=== PATIENT | female | born 1955 | race Caucasian/White ===

== ENCOUNTER → 2017-12-19 | Outpatient (CLI) | payer BC ==
--- NOTE | 2017-12-20 13:54 | MM ---
Reason for exam: screening (asymptomatic). Last mammogram was performed 2 years and 3 months ago. History: Patient is postmenopausal. Taking estrogen for 6 months beginning at age 55. Physical Findings: A clinical breast exam by your physician is recommended on an annual basis and results should be correlated with mammographic findings. MG 3D Screening Mammo W/Cad Bilateral CC, MLO, and XCCL view(s) were taken. Prior study comparison: April 02, 2011, bilateral digital screening mammo w/CAD. March 07, 2009, bilateral digital screening mammogram. There are scattered fibroglandular densities. There is chronic nodularity bilaterally. No significant changes when compared with prior studies. ASSESSMENT: Benign, BI-RAD 2 RECOMMENDATION: Routine screening mammogram of both breasts in 1 year.
== END | disposition home or self-care (01) ==
LOC: RADMAMWWP 12:57
PROVIDERS: ATTEND Family Medicine
DX: Z12.31 Encounter for screening mammogram for malignant neoplasm of breast (principal)
CPT/HCPCS: 77063; 77067

== ENCOUNTER → 2019-01-10 | Outpatient (CLI) | payer BC ==
--- NOTE | 2019-01-11 12:54 | MM ---
Reason for exam: screening (asymptomatic). Last mammogram was performed 1 year and 1 month ago. History: Patient is postmenopausal. Taking estrogen for 6 months beginning at age 55. Physical Findings: A clinical breast exam by your physician is recommended on an annual basis and results should be correlated with mammographic findings. MG 3D Screening Mammo W/Cad Bilateral CC and MLO view(s) were taken. Prior study comparison: December 19, 2017, bilateral MG 3d screening mammo w/cad. September 18, 2015, mammogram, performed at [facility]. There are scattered fibroglandular densities. There is chronic nodularity bilaterally. Benign bilateral oil cysts. No significant changes when compared with prior studies. ASSESSMENT: Benign, BI-RAD 2 RECOMMENDATION: Routine screening mammogram of both breasts in 1 year.
== END | disposition home or self-care (01) ==
LOC: RADMAMWWP 10:58
PROVIDERS: ATTEND Family Medicine
DX: Z12.31 Encounter for screening mammogram for malignant neoplasm of breast (principal)
CPT/HCPCS: 77063; 77067

== ENCOUNTER → 2020-04-18 | Outpatient (CLI) | payer BC ==
--- NOTE | 2020-04-21 09:52 | MM ---
Reason for exam: screening (asymptomatic). Last mammogram was performed 1 year and 3 months ago. History: Patient is postmenopausal. Taking estrogen for 6 months beginning at age 55. Physical Findings: A clinical breast exam by your physician is recommended on an annual basis and results should be correlated with mammographic findings. MG 3D Screening Mammo W/Cad Bilateral CC, MLO, and XCCL view(s) were taken. Prior study comparison: January 10, 2019, bilateral MG 3d screening mammo w/cad. December 19, 2017, bilateral MG 3d screening mammo w/cad. The breast tissue is heterogeneously dense. This may lower the sensitivity of mammography. There is chronic nodularity in the right breast. No significant changes when compared with prior studies. ASSESSMENT: Benign, BI-RAD 2 RECOMMENDATION: Routine screening mammogram of both breasts in 1 year.
== END | disposition home or self-care (01) ==
LOC: RADMAMWWP 12:52
PROVIDERS: ATTEND Family Medicine
DX: Z12.31 Encounter for screening mammogram for malignant neoplasm of breast (principal)
CPT/HCPCS: 77063; 77067

== ENCOUNTER → 2020-06-04 | Outpatient (CLI) | payer BC ==
--- NOTE | 2020-06-04 16:41 | MR ---
EXAMINATION TYPE: MR lumbar spine wo con DATE OF EXAM: 06/04/2020 COMPARISON: None HISTORY: Lower back pain CONTRAST: 0 mL intravenous Gadavist. TECHNIQUE: Multiplanar, multisequence images of the lumbar spine were acquired. FINDINGS: L5-S1: No significant disc bulge or disc herniation. No spinal canal stenosis. No foraminal stenosi s. L4-L5: Mild disc bulge has anterior thecal sac contact. No AP spinal canal stenosis present. Facet hy pertrophy is mild posterior lateral thecal sac contact. There is moderate left foraminal narrowing. L3-L4: No significant disc bulge or disc herniation. No spinal canal stenosis. No foraminal stenosi s. Mild facet hypertrophy is present with posterior lateral thecal sac contact. L2-L3: No significant disc bulge or disc herniation. No spinal canal stenosis. No foraminal stenosi s. L1-L2: No significant disc bulge or disc herniation. No spinal canal stenosis. No foraminal stenosi s. T12-L1: No significant disc bulge or disc herniation. No spinal canal stenosis. No foraminal stenos is. Cord terminates at the L2-L3 level. IMPRESSION: 1. Minimal disc bulging L5-4-5 with anterior thecal sac contact. 2. Some facet hypertrophy is present L4-5 and to a lesser degree L3-4.
== END | disposition home or self-care (01) ==
LOC: RADMRIMAIN 13:22
PROVIDERS: ATTEND Orthopaedic Surgery
DX: M51.26 Other intervertebral disc displacement, lumbar region (principal); M47.816 Spondylosis without myelopathy or radiculopathy, lumbar region
CPT/HCPCS: 72148

== ENCOUNTER 2020-07-03 09:27 | Day surgery (SDC) | payer BC ==
[2020-07-02 09:35] VITALS: BMI 30.2
[~2020-07-03 09:27] MED LIST: LACTATED RINGERS 1,000 ML IV SCH
[2020-07-03 09:50] VITALS: TEMP 97.6
[2020-07-03] MEDS ORDERED: MIDAZOLAM 2 MG/2 ML VIAL ONE (09:50)
[2020-07-03] MEDS ORDERED: methylPREDNISolone ACETATE 40 MG/ML 1 ML VIAL ONE (09:50)
[2020-07-03] MEDS ORDERED: fentaNYL (PF) 50 MCG/ML 2 ML AMP ONE (09:50)
[2020-07-03] MEDS ORDERED: IOPAMIDOL M200 10 ML VIAL ONE (09:50)
--- NOTE | 2020-07-03 10:12 | P.PCN ---
Date of Procedure: 07/03/20 Procedure(s) Performed: Patient Name: June Askew Date of : 1955 Patient Status: Surgical Day Care Attending Provider: Larry Gerber Date: 07/03/20 10:10 Initialization Date: 07/03/20 10:10 Date of Procedure: 07/03/20 Procedure(s) Performed: PREOPERATIVE DIAGNOSIS: Lumbar radiculopathy . POSTOPERATIVE DIAGNOSIS: Same as preoperative diagnoses. PROCEDURE 1. Transforaminal epidural steroid injection under fluoroscopic guidance at right L4-5 level. (Fluoroscopy images stored on file in the radiology Department ) 2. Lumbar epidurogram . ANESTHESIA: Local with 1% lidocaine 3 ml , moderate sedation with intravenous Versed 2 mg and fentanyle 50 micrograms. EBL: Minimal PROCEDURE INDICATION: The patient with low back pain and radiculopathy symptoms unresponsive to conservative treatment. PROCEDURE DESCRIPTION / TECHNIQUE: The patient was seen and identified in the preoperative area. Risks, benefits, complications, and alternatives were discussed with the patient. The patient agreed to proceed with the procedure and signed the consent. IV was started, and vital signs were stable. Patient was taken to the OR and time out was completed. The patient was placed in the prone position on procedure table and a pillow was placed under the abdomen to reduce lumbar lordosis. The lumbosacral area was prepped and draped in the usual sterile fashion. Critical pause was taken. Vital signs were closely monitored during the procedure. Conscious sedation was used during the procedure to decrease patient s anxiety. Using oblique fluoroscopy, the chin of the ``Alex dog at right L4-5 level was identified, and the skin and deeper tissues just below was localized with 1% lidocaine. Subsequently, a 22-gauge 5-inch spinal needle was advanced under a tunneled view fluoroscopic guidance just underneath the chin of the ``Alex dog at the right L4-5 Under lateral fluoroscopy, the needle was then advanced to the posterior border of the interforaminal space. After negative aspiration of CSF and blood and with no paresthesias, 1 mL Isovue 200 contrast dye was injected excellent epidurogram and outlining of the nerve root Subsequently, 3 mL of block solution containing 80 mg Depo-Medrol and 2 mL of 0.9% normal saline PF was injected. Needle was removed . At the end of the procedure, skin was cleansed, and bandages were applied. COMPLICATIONS:none DISPOSITION / PLANS: The patient was placed in a supine position and transferred to the recovery area in a stable condition for observation. There was no evidence of lower extremity motor or sensory deficit after the procedure. Patient was discharged from the recovery room after meeting discharge criteria. Home discharge instructions were given to the patient by the staff. The patient was reexamined prior to discharge.
[2020-07-03 10:23] VITALS: RESP 18
[2020-07-03 10:45] VITALS: BP 128/70; PULSE 72
--- NOTE | 2020-07-03 10:45 | FL ---
EXAMINATION TYPE: FL guided pain mgmt statistic DATE OF EXAM: 07/03/2020 CLINICAL HISTORY: Low back pain. TECHNIQUE: Fluoroscopy. COMPARISON: None. FINDINGS: Fluoroscopic guidance was provided during pain relief procedure performed by Dr. Gerber . A total of 0.13 minutes of fluoroscopic time was utilized during the procedure and two spot images are acquired. Images acquired shows needle localization near L4-L5 level off the midline. IMPRESSION: As Above.
[2020-07-03] MEDS ORDERED: IV FLUID CONTINUATION 1,000 ML IV ONE (10:46)
== END 2020-07-03 10:50 | disposition home or self-care (01) ==
LOC: ORPAIN 09:27
PROVIDERS: ATTEND Specialist
DX: M54.16 Radiculopathy, lumbar region (principal); M48.061 Spinal stenosis, lumbar region without neurogenic claudication; Z88.5 Allergy status to narcotic agent; Z90.710 Acquired absence of both cervix and uterus
CPT/HCPCS: 64483; J2250; J1030; J3010; Q9966; 99152

== ENCOUNTER → 2021-08-13 | Outpatient (CLI) | payer MEDICARE, OTHER ==
--- NOTE | 2021-08-17 08:57 | MM ---
Reason for exam: screening (asymptomatic). Last mammogram was performed 1 year and 4 months ago. History: Patient is postmenopausal. Taking estrogen for 6 months beginning at age 55. Physical Findings: A clinical breast exam by your physician is recommended on an annual basis and results should be correlated with mammographic findings. MG 3D Screening Mammo W/Cad Bilateral CC and MLO view(s) were taken. Prior study comparison: April 18, 2020, bilateral MG 3d screening mammo w/cad. January 10, 2019, bilateral MG 3d screening mammo w/cad. There are scattered fibroglandular densities. There is chronic nodularity bilaterally. Benign bilateral oil cyst calcifications. No significant changes when compared with prior studies. ASSESSMENT: Benign, BI-RAD 2 RECOMMENDATION: Routine screening mammogram of both breasts in 1 year.
== END | disposition home or self-care (01) ==
LOC: RADMAMWWP 10:31
PROVIDERS: ATTEND Family Medicine
DX: Z12.31 Encounter for screening mammogram for malignant neoplasm of breast (principal); Z78.0 Asymptomatic menopausal state
CPT/HCPCS: 77063; 77067

== ENCOUNTER → 2021-10-14 | Outpatient (CLI) | payer MEDICARE, OTHER ==
--- NOTE | 2021-10-14 14:54 | BD ---
EXAMINATION TYPE: Axial Bone Density DATE OF EXAM: 10/14/2021 COMPARISON: 11.07.2000 report. CLINICAL HISTORY: 66 years year old Female. ICD-10 CODE: Z78.0 POST MENOPAUSAL WITHOUT HRT Height: 60.8 Weight: 176 FRAX RISK QUESTIONS: Family History (Parent hip fracture): NO FX 3. Menopause before 45: AT 46 RISK FACTORS HISTORY OF: Surgery to Spine LOWER SPINE...AUG 2020 L4 AND L5 SURGICAL REPAIR WITH HARDWARE Family History of Osteoporosis: YES, NO FX Postmenopausal woman: YES, AT 46 YRS , PARTIAL HYST AT 41 Hyperparathyroidism: NO Adrenal Insufficiency: NO MEDICATIONS: Additional Medications: BP MEDS, REFLUX MEDS, STATIN FOR CHOLESTEROL, CELEBREX, VIT D Additional History: OSTEOARTHRITIS, REFLUX, CHOLESTEROL, HYPERTENSION, EARLY MENOPAUSE, RECENT LUMBAR SURG, WITH HARDWARE...BILAT TKRs EXAM MEASUREMENTS: Bone mineral densitometry was performed using the [employer] System. SURGICAL REPAIR.....L4 AND L5 WITH HARDWARE......SPINE NOT SCANNED Bone mineral density about the L hip (g/cm2): 0.874 T Score values are as follows: -----L Neck: -1.9 -----L Total: -1.1 Bone mineral density has: Decreased -19.3% since study of: 11.07.2000 Bone mineral density about the R Wrist (g/cm2): 0.622 T Score values are as follows: -----Dist. R+U: -0.2 -----Prox. R+U: 0.7 -----Radius total: 0.0 Bone mineral density FIRST SCANN OF FOREARM..... FRAX%s: The graph provided illustrates a 9.8% chance for a major osteoporotic fx and a 1.3% chance fo r the hips probability for fx in 10 years time. IMPRESSION: Osteopenia (T Score between -2.5 and -1). There is slightly increased risk of fracture and the patient may be considered for treatment. Re-Screen 2-5 years. NOTE: T-SCORE=SD OF THE YOUNG ADULT MEAN.
== END | disposition home or self-care (01) ==
LOC: RADBDWWP 12:46
PROVIDERS: ATTEND Family Medicine
DX: M85.852 Other specified disorders of bone density and structure, left thigh (principal); Z78.0 Asymptomatic menopausal state
CPT/HCPCS: 77080

== ENCOUNTER 2022-04-06 23:07 | Emergency (ER) | payer MEDICARE, OTHER ==
[2022-04-06 23:16] VITALS: BP 163/84; PULSE 87; RESP 18; TEMP 98.6
[2022-04-06] MEDS ORDERED: MORPHINE SULFATE 4 MG/ML SYRINGE IM STA (23:31)
--- NOTE | 2022-04-06 23:41 | ED ---
Fall HPI - General Chief Complaint: Fall Stated Complaint: Fall down 6 steps Time Seen by Provider: 04/06/22 23:21 Source: patient, family Mode of arrival: ambulatory - History of Present Illness Initial Comments: This is a 67-year-old woman here to have evaluation after she had fallen down approximately 6 stairs in her home tonight. The patient states that she was attempting to catch her dog and then she lost her balance and fell down the stairs. She states that she tumbled and it resulted in her having pain over the left shoulder blade. She denies loss of consciousness or head injury. There is no pain in the head, neck, back, chest or abdomen. None of the other extremities are bothering her. She was able to stand and walk. She states that there is pain when she attempts to move her left arm. The pain is again over the left scapula. MD Complaint: fall Onset/Timin -: minutes(s) Fall From: down stairs (#) (6) When Fall Occurred: just prior to arrival Fall Witnessed: yes, by family Place Fall Occurred: home Loss of Consciousness: none Prolonged Down Time?: no Symptoms Prior to Fall: none Location - Extremities: Left: Shoulder Severity: moderate Quality: aching Context: tripped/slipped Associated Symptoms: denies - Related Data Home Medications Medication Instructions Recorded Confirmed Lansoprazole [Prevacid] 30 mg PO DAILY 02/18/15 07/02/20 Meloxicam [Mobic] 15 mg PO DAILY 02/18/15 07/02/20 Calcium Gummie 1,000 mg PO DAILY 07/02/20 Metoprolol Succinate (ER) [Toprol 25 mg PO QAM 07/02/20 07/02/20 Xl] Milk Thistle 450 mg PO DAILY 07/02/20 07/02/20 [place]-3 Fatty Acids/Fish Oil [Fish 4,800 mg PO DAILY 07/02/20 07/02/20 Oil 1,000 mg Softgel] Solifenacin Succinate [Vesicare] 10 mg PO DAILY 07/02/20 07/02/20 hydroCHLOROthiazide 12.5 mg PO DAILY 07/02/20 07/02/20 Allergies Allergy/AdvReac Type Severity Reaction Status Date / Time hydrocodone bitartrate AdvReac Nausea & Verified 04/06/22 23:15 [From Vicodin] Vomiting Review of Systems ROS Statement: Those systems with pertinent positive or pertinent negative responses have been documented in the HPI. ROS Other: All systems not noted in ROS Statement are negative. Constitutional: Denies: weakness Eyes: Denies: vision change Respiratory: Denies: cough, dyspnea Cardiovascular: Denies: chest pain, palpitations, syncope Gastrointestinal: Denies: abdominal pain, vomiting Genitourinary: Denies: dysuria, hematuria Musculoskeletal: Reports: as per HPI, arthralgia. Denies: back pain Skin: Denies: rash Neurological: Denies: headache, weakness, numbness Past Medical History Past Medical History: GERD/Reflux, Hypertension, Osteoarthritis (OA) History of Any Multi-Drug Resistant Organisms: None Reported Past Surgical History: Hysterectomy, Joint Replacement Additional Past Surgical History / Comment(s): RACHELLE TOTAL KNEE, RIGHT SHOULDER. Past Anesthesia/Blood Transfusion Reactions: No Reported Reaction Past Psychological History: No Psychological Hx Reported Smoking Status: Never smoker Past Alcohol Use History: Daily Past Drug Use History: None Reported - Past Family History Father Family Medical History: Cancer Additional Family Medical History / Comment(s): SKIN CA General Exam Limitations: no limitations General appearance: alert, in no apparent distress Head exam: Present: atraumatic, normocephalic Eye exam: Present: normal appearance. Absent: scleral icterus, conjunctival injection Neck exam: Present: normal inspection, full ROM. Absent: tenderness, meningismus Respiratory exam: Present: normal lung sounds bilaterally. Absent: respiratory distress, wheezes, rales, rhonchi, stridor, chest wall tenderness Cardiovascular Exam: Present: regular rate, normal rhythm, normal heart sounds. Absent: systolic murmur, diastolic murmur, rubs, gallop GI/Abdominal exam: Present: soft. Absent: distended, tenderness, guarding, rebound, rigid, mass, pulsatile mass Extremities exam: Present: normal inspection, tenderness, normal capillary refill. Absent: pedal edema, calf tenderness Back exam: Present: normal inspection. Absent: CVA tenderness (R), CVA tenderness (L), paraspinal tenderness, vertebral tenderness Neurological exam: Present: alert, oriented X3. Absent: motor sensory deficit Skin exam: Present: warm, dry, intact, normal color. Absent: rash Course Vital Signs 04/06/22 23:13 Temperature 98.6 F Pulse Rate 87 Respiratory 18 Rate Blood Pressure 163/84 O2 Sat by Pulse 94 L Oximetry Disposition Clinical Impression: Fall, Contusion Disposition: HOME SELF-CARE Condition: Good Instructions (If sedation given, give patient instructions): Contusion in Adults (ED) Is patient prescribed a controlled substance at d/c from ED?: No Referrals: Reuben Jimenez MD [Primary Care Provider] - 1-2 days
--- NOTE | 2022-04-06 23:55 | XR ---
EXAMINATION TYPE: XR scapula LT DATE OF EXAM: 04/06/2022 COMPARISON: NONE HISTORY: Fall. Pain TECHNIQUE: 2 views FINDINGS: There is no sign of fracture nor dislocation. Scapula is intact. Glenohumeral joint is mallory omic. IMPRESSION: Negative scapula exam.
--- NOTE | 2022-04-06 23:56 | XR ---
EXAMINATION TYPE: XR shoulder complete LT DATE OF EXAM: 04/06/2022 COMPARISON: NONE HISTORY: Pain TECHNIQUE: 3 views FINDINGS: The glenohumeral joint is intact. There is spurring at the inferior shoulder joint. AC join t is intact. IMPRESSION: Mild osteoarthritis. No fracture.
== END 2022-04-07 00:37 | disposition home or self-care (01) ==
LOC: EC 23:07
DX: S40.012A Contusion of left shoulder, initial encounter (principal); I10 Essential (primary) hypertension; Z88.8 Allergy status to other drugs, medicaments and biological substances; W10.9XXA Fall (on) (from) unspecified stairs and steps, initial encounter
CPT/HCPCS: 73030; 73010; 99284; 96372; J2270

== ENCOUNTER → 2022-10-04 | Outpatient (CLI) | payer MEDICARE, OTHER ==
--- NOTE | 2022-10-05 08:21 | MM ---
Reason for Exam: Screening (asymptomatic). Last mammogram was performed 1 year(s) and 2 month(s) ago. Patient History: Menarche at age 13. First Full-Term at age 29. Hysterectomy at age 42. Postmenopausal. Patient used Hormonal Contraceptives for 8 years. Risk Values: Sofía 5 year model risk: 1.9%. NCI Lifetime model risk: 6.7%. Prior Study Comparison: 01/10/2019 Bilateral Screening Mammogram, [facility]. 04/18/2020 Bilateral Screening Mammogram, [facility] 08/13/2021 Bilateral Screening Mammogram, [facility]. Tissue Density: There are scattered fibroglandular densities. Findings: Analyzed By CAD. There is no suspicious group of microcalcifications or new suspicious mass in either breast. Chronic nodularity bilaterally. Benign calcifications bilaterally. Overall Assessment: Benign, BI-RAD 2 Management: Screening Mammogram of both breasts in 1 year. A clinical breast exam by your physician is recommended on an annual basis and results should be correlated with mammographic findings. Electronically signed and approved by: Beck Adair D.O.
== END | disposition home or self-care (01) ==
LOC: RADMAMWWP 16:09
PROVIDERS: ATTEND Family Medicine
DX: Z12.31 Encounter for screening mammogram for malignant neoplasm of breast (principal); Z78.0 Asymptomatic menopausal state
CPT/HCPCS: 77063; 77067

== ENCOUNTER 2023-06-12 12:45 | Emergency (ER) | payer MEDICARE, OTHER ==
[2023-06-12 13:17] VITALS: TEMP 98
[2023-06-12] MEDS ORDERED: ACETAMINOPHEN TAB 325 MG TAB PO STA (13:53)
--- NOTE | 2023-06-12 13:54 | ED ---
Back Pain HPI - General Source: patient, RN notes reviewed Limitations: no limitations <Janina Omalley - Last Filed: 06/12/23 13:50> <Herlinda Granados - Last Filed: 06/12/23 16:52> - General Chief Complaint: Back Pain/Injury Stated Complaint: Back Pain Time Seen by Provider: 06/12/23 13:50 - History of Present Illness Initial Comments: patient is a 68-year-old female presented ER with chief complaint of back pain. Patient states she injured herself about a week ago. Patient denies any fevers, saddle paresthesias, radiating pain or incontinence. (Janina Omalley) 68-year-old female with past medical history of back pain with fusion who presents to the emergency department reporting low back pain. States that one week ago she was helping her move a glass tabletop. States that she twisted and had sudden onset of pain in her lower back. She denies any numbness or tingling in her lower extremities. No lower extremity weakness. No saddle anesthesia. No bowel or bladder incontinence. She has not taken anything for the pain. Pain is worse with movement and standing. She does have previous history of lumbar fusion which was done [address] [facility]. States that she had resolution of most of her pain after the surgery. She denies any falls. No fevers. No other alleviating, precipitating modifying factors (Herlinda Granados) - Related Data Home Medications Medication Instructions Recorded Confirmed Lansoprazole [Prevacid] 30 mg PO DAILY 02/18/15 07/02/20 Meloxicam [Mobic] 15 mg PO DAILY 02/18/15 07/02/20 Calcium Gummie 1,000 mg PO DAILY 07/02/20 Metoprolol Succinate (ER) [Toprol 25 mg PO QAM 07/02/20 07/02/20 Xl] Milk Thistle 450 mg PO DAILY 07/02/20 07/02/20 [place]-3 Fatty Acids/Fish Oil [Fish 4,800 mg PO DAILY 07/02/20 07/02/20 Oil 1,000 mg Softgel] Solifenacin Succinate [Vesicare] 10 mg PO DAILY 07/02/20 07/02/20 hydroCHLOROthiazide 12.5 mg PO DAILY 07/02/20 07/02/20 Previous Rx's Medication Instructions Recorded Lidocaine 5% Patch [Lidoderm] 1 patch TOPICAL DAILY #25 patch 06/12/23 methocarbamoL [Robaxin-750] 750 mg PO QID PRN #30 tab 06/12/23 Allergies Allergy/AdvReac Type Severity Reaction Status Date / Time hydrocodone bitartrate AdvReac Nausea & Verified 06/12/23 12:52 [From Vicodin] Vomiting Review of Systems ROS Other: All systems not noted in ROS Statement are negative. <Janina Omalley - Last Filed: 06/12/23 13:50> ROS Other: All systems not noted in ROS Statement are negative. <Herlinda Granados - Last Filed: 06/12/23 16:52> ROS Statement: Those systems with pertinent positive or pertinent negative responses have been documented in the HPI. Past Medical History Past Medical History: GERD/Reflux, Hypertension, Osteoarthritis (OA) History of Any Multi-Drug Resistant Organisms: None Reported Past Surgical History: Hysterectomy, Joint Replacement Additional Past Surgical History / Comment(s): RACHELLE TOTAL KNEE, RIGHT SHOULDER. Past Anesthesia/Blood Transfusion Reactions: No Reported Reaction Past Psychological History: No Psychological Hx Reported Smoking Status: Never smoker Past Alcohol Use History: Daily Past Drug Use History: None Reported - Past Family History Father Family Medical History: Cancer Additional Family Medical History / Comment(s): SKIN CA <Janina Omalley - Last Filed: 06/12/23 13:50> General Exam Limitations: no limitations <Janina Omalley - Last Filed: 06/12/23 13:50> General appearance: alert, in no apparent distress Head exam: Present: atraumatic, normocephalic, normal inspection Eye exam: Present: normal appearance, PERRL, EOMI. Absent: scleral icterus, con junctival injection, periorbital swelling ENT exam: Present: normal exam, mucous membranes moist Neck exam: Present: normal inspection. Absent: tenderness, meningismus, lymphadenopathy Respiratory exam: Present: normal lung sounds bilaterally. Absent: respiratory distress, wheezes, rales, rhonchi, stridor Cardiovascular Exam: Present: regular rate, normal rhythm, normal heart sounds. Absent: systolic murmur, diastolic murmur, rubs, gallop, clicks GI/Abdominal exam: Present: soft, normal bowel sounds. Absent: distended, tenderness, guarding, rebound, rigid Extremities exam: Present: normal inspection, full ROM, normal capillary refill, other (5 out of 5 muscle strength in her bilateral lower extremities to include her hip flexors, knee extensors, ankle and great toe dorsiflexors and foot plantar flexors). Absent: tenderness, pedal edema, joint swelling, calf tenderness Back exam: Present: paraspinal tenderness (Near L1-L2) Neurological exam: Present: alert, oriented X3, CN II-XII intact Psychiatric exam: Present: normal affect, normal mood Skin exam: Present: warm, dry, intact, normal color. Absent: rash <Herlinda Granados - Last Filed: 06/12/23 16:52> - General Exam Comments Initial Comments: Visual Physical Exam Vital signs reviewed General: Well-appearing, nontoxic, no acute distress. Head: Normocephalic, atraumatic Eyes: PERRLA, EOMI ENT: Airway patent Chest: Nonlabored breathing Skin: No visual rash, normal skin tone Neuro: Alert and oriented 3 Musculoskeletal: No gross abnormalities (Janina Omalley) Course Vital Signs 06/12/23 06/12/23 12:50 16:16 Temperature 98 F Pulse Rate 88 83 Respiratory 20 16 Rate Blood Pressure 180/83 181/86 O2 Sat by Pulse 97 98 Oximetry Medical Decision Making <Janina Omalley - Last Filed: 06/12/23 13:50> <Herlinda Granados - Last Filed: 06/12/23 16:52> - Medical Decision Making I performed the quick note portion of the exam. Electronically signed by Janina Omalley PA-C (Janina Omalley) Was pt. sent in by a medical professional or institution (BRUCE Bedoya, CLINICAL PRACTITIONER, urgent care, hospital, or senior care...) When possible be specific @ -No Did you speak to anyone other than the patient for history (EMS, parent, family, police, friend...)? What history was obtained from this source @ -Spoke with the patient's Did you review nursing and triage notes (agree or disagree)? Why? @ -I reviewed and agree with nursing and triage notes Were old charts reviewed (outside hosp., previous admission, EMS record, old EKG, old radiological studies, urgent care reports/EKG's, senior care records)? Report findings @ -No old charts were reviewed Differential Diagnosis (chest pain, altered mental status, abdominal pain women, abdominal pain men, vaginal bleeding, weakness, fever, dyspnea, syncope, headache, dizziness, GI bleed, back pain, seizure, CVA, palpatations, mental health, musculoskeletal)? @ -Differential Back Pain: Strain, zoster, cauda equina syndrome, epidural abscess, vertebral osteomyelitis, discitis, fracture, subluxation, disc herniation, DJD, spinal stenosis, dissection, AAA, pancreatitis, peptic ulcer disease, pyelonephritis, kidney stone, this is not meant to be an all-inclusive list. EKG interpreted by me (3pts min.). @ -Not done X-rays interpreted by me (1pt min.). @ -Yes and demonstrates a compression fracture of L1 measuring 40%, compression fracture of L2 which is mild CT interpreted by me (1pt min.). @ -None done U/S interpreted by me (1pt. min.). @ -None done What testing was considered but not performed or refused? (CT, X-rays, U/S, labs)? Why? @ -None What meds were considered but not given or refused? Why? @ -None Did you discuss the management of the patient with other professionals (professionals i.e. , PA, CLINICAL PRACTITIONER, lab, RT, psych nurse, social media project manager, sales hunter, teacher, bank secrecy act officer, case making machine operator)? Give summary @ -No Was smoking cessation discussed for >3mins.? @ -No Was critical care preformed (if so, how long)? @ -No Were there social determinants of health that impacted care today? How? (Homelessness, low income, unemployed, alcoholism, drug addiction, transportation, low edu. Level, literacy, decrease access to med. care, penitentiary, rehab)? @ -No Was there de-escalation of care discussed even if they declined (Discuss DNR or withdrawal of care, Hospice)? DNR status @ -No What co-morbidities impacted this encounter? (DM, HTN, Smoking, COPD, CAD, Cancer, CVA, ARF, Chemo, Hep., AIDS, mental health diagnosis, sleep apnea, morb id obesity)? @ -Back pain with fusion Was patient admitted / discharged? Hospital course, mention meds given and route, prescriptions, significant lab abnormalities, going to OR and other pertinent info. @ -Discharged. X-ray was performed which demonstrates 2 compression fractures. Patient does not have any neurologic symptoms. She was given a dose of muscle relaxer and a Lidoderm patch. Patient will be discharged home with Lidoderm patches and a muscle relaxer. Take the medications as directed and follow-up with her neurosurgeon for further management. Return for any new or worsening symptoms. Patient agreeable to plan was discharged in stable condition Undiagnosed new problem with uncertain prognosis? @ -No Drug Therapy requiring intensive monitoring for toxicity (Heparin, Nitro, Insulin, Cardizem)? @ -No Were any procedures done? @ -No Diagnosis/symptom? @ -Acute exacerbation of chronic back pain, acute compression fracture L1, L3 Acute, or Chronic, or Acute on Chronic? @ -Acute on chronic Uncomplicated (without systemic symptoms) or Complicated (systemic symptoms)? @ -Uncomplicated Side effects of treatment? @ -No Exacerbation, Progression, or Severe Exacerbation? @ Yes Poses a threat to life or bodily function? How? (Chest pain, [place], [place], pneumonia, PE, COPD, DKA, ARF, appy, cholecystitis, CVA, Diverticulitis, Homicidal, Suicidal, threat to staff... and all critical care pts) @ -No (Herlinda Granados) Disposition <Janina Omalley - Last Filed: 06/12/23 13:50> Is patient prescribed a controlled substance at d/c from ED?: No Time of Disposition: 15:43 <Herlinda Granados - Last Filed: 06/12/23 16:52> Clinical Impression: Compression fracture, Back pain Disposition: HOME SELF-CARE Condition: Stable Instructions (If sedation given, give patient instructions): Acute Low Back Pain (ED) Additional Instructions: Please wear a patch for 12 hours and remove it. If the patches are not covered by insurance, buy the Aspercreme patches [id number]. Take the muscle relaxer up to 4 times daily as needed for muscle pain. Follow-up with your neurosurgeon return for any new or worsening symptoms Prescriptions: Lidocaine 5% Patch [Lidoderm] 1 patch TOPICAL DAILY #25 patch methocarbamoL [Robaxin-750] 750 mg PO QID PRN #30 tab PRN Reason: Muscle Pain Referrals: Reuben Jimenez MD [Primary Care Provider] - 1-2 days
--- NOTE | 2023-06-12 14:42 | XR ---
EXAMINATION TYPE: XR lumbar spine 2 or 3V DATE OF EXAM: 06/12/2023 2:14 PM CLINICAL INDICATION:Female, 68 years old with history of pain; H COMPARISON: MRI lumbar spine 06/04/2020 TECHNIQUE: XR lumbar spine 2 or 3V - FINDINGS: There appear to be 5 lumbar-type vertebral bodies with small lumbar ribs at L1. Generalized demineral ization. Postoperative changes with bilateral pedicle screws and posterior fixation rods L4-L5-S1. Ri ght pelvic neurostimulator with lead projecting in the inferior presacral region on the right. There is mild/moderate multilevel degenerative disc disease, facet arthrosis in the mid to lower lumbar spi ne. Trace anterolisthesis L4 on L5. Mild apex right scoliosis centered at L2-3. Moderate anterior wed ging of L1 with about 40% vertebral body height loss anteriorly. Mild height loss and anterior wedgin g along the superior endplate L3. IMPRESSION: 1. Moderate compression deformity L1 and mild compression deformity L3, new since 05/2020 but techni gena age indeterminate. 2. Multilevel lumbar spondylosis and postoperative changes.
[2023-06-12] MEDS ORDERED: ORPHENADRINE 30 MG/ML 2 ML VIAL IM STA (15:35)
[2023-06-12] MEDS ORDERED: LIDOCAINE 5% PATCH TOPICAL STA (15:35)
[2023-06-12 16:28] VITALS: BP 181/86; PULSE 83; RESP 16
== END 2023-06-12 16:17 | disposition home or self-care (01) ==
LOC: EC 12:45
DX: S32.010A Wedge compression fracture of first lumbar vertebra, initial encounter for closed fracture (principal); S32.030A Wedge compression fracture of third lumbar vertebra, initial encounter for closed fracture; G89.29 Other chronic pain; I10 Essential (primary) hypertension; K21.9 Gastro-esophageal reflux disease without esophagitis; Z79.1 Long term (current) use of non-steroidal anti-inflammatories (NSAID); Z79.899 Other long term (current) drug therapy; Z88.5 Allergy status to narcotic agent; X50.1XXA Overexertion from prolonged static or awkward postures, initial encounter
CPT/HCPCS: 72100; 99283; 96372; J2360

== ENCOUNTER 2023-07-15 11:39 | Emergency (ER) | payer MEDICARE, OTHER ==
[2023-07-15 12:23] VITALS: RESP 18
[2023-07-15] MEDS ORDERED: LIDOCAINE 4% PATCH TOPICAL STA (13:12)
[2023-07-15] MEDS ORDERED: dexAMETHasone 4 MG TAB PO STA (13:12)
[2023-07-15] MEDS ORDERED: traMADol 50 MG TAB PO STA (13:12)
[2023-07-15] MEDS ORDERED: traMADol 50 MG STARTER PACK 3 TAB BTL PO STA (13:12)
[2023-07-15] MEDS ORDERED: HYDROmorphone 1 MG/ML 1 ML SYRINGE IM STA (13:12)
[2023-07-15] MEDS ORDERED: CYCLOBENZAPRINE 10MG STARTER 3 TAB BTL PO STA (13:12)
--- NOTE | 2023-07-15 13:13 | ED ---
Back Pain HPI - General Chief Complaint: Back Pain/Injury Stated Complaint: Back Pain Time Seen by Provider: 07/15/23 12:31 Source: patient, RN notes reviewed, old records reviewed Limitations: no limitations - History of Present Illness Initial Comments: This is a 68-year-old female the emergency department today for evaluation of back pain today. This is not new back pain for this patient, patient has a history of chronic back pain and patient is just here for pain control. States this is no new pain for her symptoms no neurological complaints MD Complaint: back pain -: days(s) Similar Symptoms Previously: Yes Place: home Radiation: none Severity: severe Severity scale (1-10): 9 Quality: sharp Consistency: constant Improves With: none Worsens With: none Context: turning/twisting Associated Symptoms: denies other symptoms - Related Data Home Medications Medication Instructions Recorded Confirmed Lansoprazole [Prevacid] 30 mg PO DAILY 02/18/15 07/02/20 Meloxicam [Mobic] 15 mg PO DAILY 02/18/15 07/02/20 Calcium Gummie 1,000 mg PO DAILY 07/02/20 Metoprolol Succinate (ER) [Toprol 25 mg PO QAM 07/02/20 07/02/20 Xl] Milk Thistle 450 mg PO DAILY 07/02/20 07/02/20 [place]-3 Fatty Acids/Fish Oil [Fish 4,800 mg PO DAILY 07/02/20 07/02/20 Oil 1,000 mg Softgel] Solifenacin Succinate [Vesicare] 10 mg PO DAILY 07/02/20 07/02/20 hydroCHLOROthiazide 12.5 mg PO DAILY 07/02/20 07/02/20 Previous Rx's Medication Instructions Recorded Lidocaine 5% Patch [Lidoderm] 1 patch TOPICAL DAILY #25 patch 06/12/23 methocarbamoL [Robaxin-750] 750 mg PO QID PRN #30 tab 06/12/23 Allergies Allergy/AdvReac Type Severity Reaction Status Date / Time hydrocodone bitartrate AdvReac Nausea & Verified 07/15/23 12:19 [From Vicodin] Vomiting Review of Systems ROS Statement: Those systems with pertinent positive or pertinent negative responses have been documented in the HPI. ROS Other: All systems not noted in ROS Statement are negative. Past Medical History Past Medical History: GERD/Reflux, Hypertension, Osteoarthritis (OA) Additional Past Medical History / Comment(s): slipped disc, axonics lower right side. History of Any Multi-Drug Resistant Organisms: None Reported Past Surgical History: Hysterectomy, Joint Replacement Additional Past Surgical History / Comment(s): RACHELLE TOTAL KNEE, RIGHT SHOULDER. Past Anesthesia/Blood Transfusion Reactions: No Reported Reaction Past Psychological History: No Psychological Hx Reported Smoking Status: Never smoker Past Alcohol Use History: Daily Past Drug Use History: None Reported - Past Family History Father Family Medical History: Cancer Additional Family Medical History / Comment(s): SKIN CA General Exam General appearance: alert, in no apparent distress Head exam: Present: atraumatic, normocephalic, normal inspection Eye exam: Present: normal appearance, PERRL, EOMI. Absent: scleral icterus, conjunctival injection, periorbital swelling ENT exam: Present: normal exam, mucous membranes moist Neck exam: Present: normal inspection. Absent: tenderness, meningismus, lymphadenopathy Respiratory exam: Present: normal lung sounds bilaterally. Absent: respiratory distress, wheezes, rales, rhonchi, stridor Cardiovascular Exam: Present: regular rate, normal rhythm, normal heart sounds. Absent: systolic murmur, diastolic murmur, rubs, gallop, clicks GI/Abdominal exam: Present: soft, normal bowel sounds. Absent: distended, tenderness, guarding, rebound, rigid Extremities exam: Present: normal inspection, full ROM, normal capillary refill. Absent: tenderness, pedal edema, joint swelling, calf tenderness Back exam: Present: normal inspection Neurological exam: Present: alert, oriented X3, CN II-XII intact Psychiatric exam: Present: normal affect, normal mood Skin exam: Present: warm, dry, intact, normal color. Absent: rash Course Vital Signs 07/15/23 07/15/23 12:16 13:47 Temperature 98.6 F 98.4 F Pulse Rate 78 70 Respiratory 18 18 Rate Blood Pressure 169/81 154/81 O2 Sat by Pulse 98 98 Oximetry - Reevaluation(s) Reevaluation #1: Record is reviewed Reevaluation #2: Patient symptoms are improved Reevaluation #3: Patient informed of results and questions answered Reevaluation #4: Was pt. sent in by a medical professional or institution (, PA, BUS SYSTEM OPERATOR, urgent care, hospital, or group home...) When possible be specific @ -no Did you speak to anyone other than the patient for history (EMS, parent, family, police, friend...)? What history was obtained from this source @ -no Did you review nursing and triage notes (agree or disagree)? Why? @ -agree Are old charts reviewed (outside hosp., previous admission, EMS record, old EKG, old radiological studies, urgent care reports/EKG's, group home records)? Report findings @ -yes Differential Diagnosis (chest pain, altered mental status, abdominal pain women, abdominal pain men, vaginal bleeding, weakness, fever, dyspnea, syncope, headache, dizziness, GI bleed, back pain, seizure, CVA, palpatations, mental health, musculoskeletal)? @ -prior EKG interpreted by me (3pts min.). @ -no X-rays interpreted by me (1pt min.). @ -no CT interpreted by me (1pt min.). @ -no U/S interpreted by me (1pt. min.). @ -no What testing was considered but not performed or refused? (CT, X-rays, U/S, labs)? Why? @ -none What meds were considered but not given or refused? Why? @ -none Did you discuss the management of the patient with other professionals (professionals i.e. , PA, BUS SYSTEM OPERATOR, lab, RT, psych nurse, social service coordinator, it project lead, teacher, chairman & chief executive officer, case management coordinator)? Give summary @ -no Was smoking cessation discussed for >3mins.? @ -no Was critical care preformed (if so, how long)? @ -no Were there social determinants of health that impacted care today? How? (Homelessness, low income, unemployed, alcoholism, drug addiction, transportation, low edu. Level, literacy, decrease access to med. care, residential, rehab)? @ -none Was there de-escalation of care discussed even if they declined (Discuss DNR or withdrawal of care, Hospice)? DNR status @ -no What co-morbidities impacted this encounter? (DM, HTN, Smoking, COPD, CAD, Cancer, CVA, ARF, Chemo, Hep., AIDS, mental health diagnosis, sleep apnea, morbid obesity)? @ -none Was patient admitted / discharged? Hospital course, mention meds given and route, prescriptions, significant lab abnormalities, going to OR and other pertinent info. @ - 68 female to the emergency department for evaluation of acute back pain. Patient's back pain is well-controlled here in the ER if symptoms are improved, patient is able to ambulate with no neurological discharged home Discharge Undiagnosed new problem with uncertain prognosis? @ -no Drug Therapy requiring intensive monitoring for toxicity (Heparin, Nitro, Insulin, Cardizem)? @ -no Were any procedures done? @ -no Diagnosis/symptom? @ -Acute back pain Acute, or Chronic, or Acute on Chronic? @ -Acute Uncomplicated (without systemic symptoms) or Complicated (systemic symptoms)? @ -Complicated Side effects of treatment? @ -no Exacerbation, Progression, or Severe Exacerbation? @ -exacerbation Poses a threat to life or bodily function? How? (Chest pain, [place], [place], pneumonia, PE, COPD, DKA, ARF, appy, cholecystitis, CVA, Diverticulitis, Homicidal, Suicidal, threat to staff... and all critical care pts) @ -no Reevaluation #5: Differential Back Pain: Strain, zoster, cauda equina syndrome, epidural abscess, vertebral osteomyelitis, discitis, fracture, subluxation, disc herniation, DJD, spinal stenosis, dissection, AAA, pancreatitis, peptic ulcer disease, pyelonephritis, kidney stone, this is not meant to be an all-inclusive list. Medical Decision Making - Medical Decision Making 68 female to the emergency department for evaluation of acute back pain. Patient's back pain is well-controlled here in the ER if symptoms are improved, patient is able to ambulate with no neurological discharged home Disposition Clinical Impression: Mid back pain, Lumbar radiculopathy, Strain of lumbar region Disposition: HOME SELF-CARE Condition: Good Instructions (If sedation given, give patient instructions): Acute Low Back Pain (ED) Is patient prescribed a controlled substance at d/c from ED?: No Referrals: Reuben Jimenez MD [Primary Care Provider] - 1-2 days Time of Disposition: 13:10
[2023-07-15 14:00] VITALS: BP 154/81; PULSE 70; TEMP 98.4
== END 2023-07-15 13:51 | disposition home or self-care (01) ==
LOC: EC 11:39
DX: S39.012A Strain of muscle, fascia and tendon of lower back, initial encounter (principal); M54.16 Radiculopathy, lumbar region; I10 Essential (primary) hypertension; K21.9 Gastro-esophageal reflux disease without esophagitis; M19.90 Unspecified osteoarthritis, unspecified site; Z79.1 Long term (current) use of non-steroidal anti-inflammatories (NSAID); Z79.899 Other long term (current) drug therapy; Z88.5 Allergy status to narcotic agent; X58.XXXA Exposure to other specified factors, initial encounter
CPT/HCPCS: 99283 ×2; 96372 ×2; J8540; J1170

== ENCOUNTER → 2023-09-27 | Outpatient (CLI) | payer MEDICARE, OTHER | END | disposition home or self-care (01) | LOC: LABWHC1 15:16 | PROVIDERS: ATTEND Obstetrics & Gynecology | DX: C56.9 Malignant neoplasm of unspecified ovary (principal); N83.209 Unspecified ovarian cyst, unspecified side | CPT/HCPCS: 36415 ==

== ENCOUNTER → 2023-09-28 | Outpatient (CLI) | payer MEDICARE, OTHER ==
--- NOTE | 2023-09-30 10:33 | US ---
EXAMINATION TYPE: US pelvis complete transvag DATE OF EXAM: 09/28/2023 COMPARISON: NONE CLINICAL INDICATION: Female, 68 years old with history of N83.209 UNSPECIFIED OVARIAN CYST, UNSPECIFI ED SIDE; right ovarian cyst seen on MRI partial hysterectomy TECHNIQUE: Transvaginal (TV) and Transabdominal (TA) . EXAM MEASUREMENTS: Uterus: Surgically absent Right Ovary: 3.9 x 3.7 x 3.2 cm Left Ovary: Obscured by bowel gas. 1. Uterus: Surgically absent 2. Endometrium: Surgically absent 3. Right Ovary: Anechoic area 3.1 x 3.2 x 2.9 cm 4. Left Ovary: Obscured by overlying bowel gas 5. Bilateral Adnexa: right adnexal complex area with septations seen 9.8 x 6.3 x 8.4 cm. 6. Posterior cul-de-sac: wnl IMPRESSION: 1. Status post hysterectomy. Unable to visualize the left ovary. 2. A complex multilocular cystic mass of the right adnexa measuring up to 9.8 cm. 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 Recommend furthe r ROLLED SEAT TRIMMER evaluation. Correlate with tumor markers and consider further assessment with CT.
== END | disposition home or self-care (01) ==
LOC: RADUSWWP 15:18
PROVIDERS: ATTEND Obstetrics & Gynecology
DX: N83.209 Unspecified ovarian cyst, unspecified side (principal); Z90.710 Acquired absence of both cervix and uterus
CPT/HCPCS: 76830; 76856

== ENCOUNTER → 2024-02-03 | Outpatient (CLI) | payer MEDICARE | END | disposition home or self-care (01) | LOC: RADUSWWP 16:08 | PROVIDERS: ATTEND Obstetrics & Gynecology | DX: Z53.9 Procedure and treatment not carried out, unspecified reason (principal) ==

== ENCOUNTER → 2024-04-10 | Outpatient (CLI) | payer MEDICARE, OTHER ==
--- NOTE | 2024-04-13 19:15 | BD ---
EXAMINATION TYPE: Axial Bone Density DATE OF EXAM: 04/10/2024 CLINICAL HISTORY: 69 years old Female. ICD-10 CODE: M85.88 BONE DENSITY AND STRUCTURE Height: 58 Weight: 179 FRAX RISK QUESTIONS: Family History (Parent hip fracture): no History of Fracture in Adulthood: no Secondary Osteoporosis: no RISK FACTORS HISTORY OF: Surgery to Spine: yes When: 2020 MEDICATIONS: Thyroid Medications: no Osteoporosis Medications: no EXAM MEASUREMENTS: Bone mineral densitometry was performed using the [employer] System. Bone mineral density about the R hip (g/cm2): 0.727 Bone mineral density about the L hip (g/cm2): 0.713 T Score values are as follows: -----R Neck: -2.1 -----L Neck: -2.6 -----R Total: -2.2 -----L Total: -2.3 Z Score values are as follows: -----R Neck: -0.8 -----L Neck: -1.3 -----R Total: -1.2 -----L Total: -1.3 Bone mineral density has: Decreased -35.7% since study of: 11/07/2000 Bone mineral density about the R Wrist (g/cm2): 0.685 T Score values are as follows: -----Dist. R+U: -0.8 -----Prox. R+U: 0.7 -----Radius total: 0.2 Z Score values are as follows: -----Dist. R+U: 0.9 -----Prox. R+U: 2.3 -----Radius total: 1.8 Bone mineral density has: Decreased 0.1% since study of: 10/14/2021 FRAX%s: The graph provided illustrates a 13.7% chance for a major osteoporotic fx and a 3.3% chance f or the hips probability for fx in 10 years time. IMPRESSION: Osteoporosis (T Score less than -2.5). There is increased fracture risk and therapy is usually indicated based on age. Re-Screen 1-2 years. NOTE: T-SCORE=SD OF THE YOUNG ADULT MEAN. [facility], , 04/13/2024 7:13 PM
--- NOTE | 2024-04-15 20:18 | MM ---
Reason for Exam: Screening (asymptomatic). Last mammogram was performed 1 year(s) and 6 month(s) ago. Patient History: Menarche at age 13. First Full-Term at age 29. Hysterectomy at age 42. Postmenopausal. Patient used Hormonal Contraceptives for 8 years. Risk Values: Sofía 5 year model risk: 1.9%. NCI Lifetime model risk: 6.2%. Prior Study Comparison: 04/18/2020 Bilateral Screening Mammogram, [facility]. 08/13/2021 Bilateral Screening Mammogram, [facility]. 10/04/2022 Bilateral MG 3D screening mammo w/cad, [facility]. Tissue Density: There are scattered areas of fibroglandular density. Findings: Analyzed By CAD. The pattern is symmetrical. Multiple benign round calcifications are present bilaterally. Chronic nodularity is present bilaterally. No suspicious groups of microcalcifications, spiculated or lobular masses, architectural distortion or other secondary signs of malignancy are mammographically apparent. Overall Assessment: Benign, BI-RAD 2 Management: Screening Mammogram of both breasts in 1 year. A negative mammogram report should not preclude additional follow up of suspicious palpable abnormalities. Patient should continue monthly self breast exam. A clinical breast exam by your physician is recommended on an annual basis and results should be correlated with mammographic findings. Note on Sofía scores and lifetime risk: 1. A Sofía score greater than 3% is considered moderate risk. If this is the case, consider specialist referral to assess eligibility for a risk reducing agent. 2. If overall lifetime risk for the development of breast cancer is 20% or higher, the patient may qualify for future screening with alternating mammogram and breast MRI. [facility], , 04/15/2024 8:15 PM. Electronically signed and approved by: Jey Tamez D.O. Radiologis
== END | disposition home or self-care (01) ==
LOC: RADUSWWP 15:42
PROVIDERS: ATTEND Neurological Surgery
DX: Z12.31 Encounter for screening mammogram for malignant neoplasm of breast (principal); M43.9 Deforming dorsopathy, unspecified; Z48.811 Encounter for surgical aftercare following surgery on the nervous system; Z98.1 Arthrodesis status; M85.88 Other specified disorders of bone density and structure, other site; Z78.0 Asymptomatic menopausal state; R92.323 Mammographic fibroglandular density, bilateral breasts; M81.0 Age-related osteoporosis without current pathological fracture
CPT/HCPCS: 77063; 77067; 77080

== ENCOUNTER → 2024-04-25 | Outpatient (CLI) | payer MEDICARE, OTHER ==
--- NOTE | 2024-04-25 12:18 | US ---
EXAMINATION TYPE: US pelvic complete DATE OF EXAM: 04/25/2024 COMPARISON: US CLINICAL INDICATION: Female, 69 years old with history of N83.209 UNSPEC OVARIAN CYST; Known right ad nexal mass, F/U TECHNIQUE: Transabdominal (TA). Transabdominal grayscale images were acquired. Transvaginal not pe rformed- pt had recent back surgery and has very limited mobility FINDINGS: 1. Uterus: Surgically absent 2. Endometrium: Surgically absent 3. Right Ovary: No normal ovarian tissue visualized 4. Left Ovary: Obscured by overlying bowel gas 5. Bilateral Adnexa: Right adnexa shows large cystic mass with multiple septations= 12.2 x 6.9 x 12. 6 cm/ increased in size when compared to prior= 9.8 x 6.3 x 8.4 cm 6. Posterior cul-de-sac: wnl IMPRESSION: 1. There is a large right adnexal cystic mass with septations measuring 12.6 cm increased in size fro m prior exam where measured 9.8 cm. Differential diagnosis would include cystic ovarian neoplasms. Re commend correlation with CA-125 or Ova-1 test. Underlying malignancy in the differential diagnosis. [facility], , 04/25/2024 12:16 PM
== END | disposition home or self-care (01) ==
LOC: RADUSWWP 11:26
PROVIDERS: ATTEND Family Medicine
DX: N83.209 Unspecified ovarian cyst, unspecified side (principal)
CPT/HCPCS: 76856